=== PATIENT | female | born 1965 | race Caucasian/White ===

== ENCOUNTER 2018-04-12 12:58 | Emergency (ER) | payer OTHER, BC ==
[2018-04-12 13:23] VITALS: BP 146/89
--- NOTE | 2018-04-12 13:30 | UC ---
Throat Pain/Nasal Doom HPI - HPI Summary HPI Summary: 52 yo female presents with b/l ear pain right>left for the last 5 days. States her ears starting hurting 5 days ago after flying from [place] for a wedding. Since that time her ear pain has worsened. Right ear feels muffled. This morning she woke and her LEFT eye was "crusted shut" and has had mild clear drainage since that time. She does wear glasses and contacts, but has not worn her contacts in over a week as she does not like this new brand. She has been taking ibuprofen with mild relief of her ear pain. Denies fever, chills, sinus symptoms, cough. - History of Current Complaint Chief Complaint: UCRespiratory Stated Complaint: CONGESTION,BILATERAL EAR COMPLAINT Time Seen by Provider: 04/12/18 13:29 Hx Obtained From: Patient Onset/Duration: Gradual Onset Severity: Moderate Pain Intensity: 5 Pain Scale Used: 0-10 Numeric - Allergies/Home Medications Allergies/Adverse Reactions: Allergies Allergy/AdvReac Type Severity Reaction Status Date / Time No Known Allergies Allergy Verified 04/12/18 13:18 Home Medications: Home Medications Ibuprofen TAB* [Advil TAB*] 400 mg PO Q4H PRN 04/12/18 [History Confirmed ] Velcade SUBCUT SEE INSTRUCTIONS 04/12/18 [History] PMH/Surg Hx/FS Hx/Imm Hx - Additional Past Medical History Additional PMH: None - Surgical History Surgical History: None - Family History Known Family History: Positive: None - Social History Occupation: Employed Full-time Lives: With Family Alcohol Use: Occasionally Substance Use Type: None Smoking Status (MU): Never Smoked Tobacco Review of Systems All Other Systems Reviewed And Are Negative: Yes Constitutional: Positive: Negative Skin: Positive: Negative Eyes: Positive: Drainage, Eye Redness ENT: Positive: Ear Ache Respiratory: Positive: Negative Cardiovascular: Positive: Negative Gastrointestinal: Positive: Negative Neurological: Positive: Negative Psychological: Positive: Negative Physical Exam - Summary Physical Exam Summary: GENERAL: NAD. WDWN. No pain distress. SKIN: No rashes, sores, lesions, or open wounds. HEENT: Head: AT/NC Eyes: EOM intact. PERLLA. LEFT EYE: Conjunctiva with mild inflammation and clear tearing/discharge. No edema. Ears: Hearing grossly normal. RIGHT TM with moderate injection and bulging. No canal edema or drainage. Mastoid NTTP. LEFT TM with mild injection and bulging. No canal edema or drainage. Nose: Nasal mucosa pink and moist. NTTP maxillary and frontal sinus. Throat: Posterior oropharynx without exudates, erythema, or tonsillar enlargement. Uvula midline. NECK: Supple. Nontender. No lymphadenopathy. CHEST: CTAB. No r/r/w. No accessory muscle use. Breathing comfortably and in no distress. CV: RRR. Without m/r/g. Pulses intact. NEURO: Alert. PSYCH: Age appropriate behavior. Triage Information Reviewed: Yes Vital Signs: Initial Vital Signs Temp 99.6 F 04/12/18 13:19 Pulse 103 04/12/18 13:19 Resp 14 04/12/18 13:19 BP 146/89 04/12/18 13:19 Pulse Ox 99 04/12/18 13:19 Vital Signs Reviewed: Yes Throat Pain/Nasal Course/Dx - Course Course Of Treatment: b/l otitis media with right>left. - Differential Dx/Diagnosis Provider Diagnosis: Otitis media of both ears Discharge - Sign-Out/Discharge Documenting (check all that apply): Patient Departure All imaging exams completed and their final reports reviewed: No Studies - Discharge Plan Condition: Stable Disposition: HOME Prescriptions: Amoxicillin/Clavulanate TAB* [Augmentin TAB 875*] 875 mg PO BID #20 tab Patient Education Materials: Ear Infection (ED) Referrals: No Primary Care Phys,NOPCP [Primary Care Provider] - Additional Instructions: If you develop a fever, shortness of breath, chest pain, new or worsening symptoms - please call your PCP or go to the ED. Your blood pressure was high at todays visit. Please see your primary provider within 4 weeks for recheck and re-evaluation. - Billing Disposition and Condition Condition: STABLE Disposition: Home
== END 2018-04-12 13:43 | disposition home or self-care (01) ==
LOC: UCCORT 12:58
DX: H66.93 Otitis media, unspecified, bilateral (principal)
CPT/HCPCS: 99202; G0463